=== PATIENT | female | born 1970 | race African-American/Black ===

== ENCOUNTER 2017-10-20 11:57 | Inpatient (IN) | payer OTHER ==
[~2017-10-20] VITALS: Ht 157.5 cm; Wt 65.8 kg
[~2017-10-20 11:57] MED LIST: IBUP400T20 PO; PROM25SU8 PO; ULTR50TA PO; ZITH250T PO; [UNRECOGNIZED DRUG - OTHER] PO
--- NOTE | 2017-10-20 12:19 | PD ---
HPI Chief Complaint: Psychiatric Symptoms Time Seen by Provider: 12:13 Travel History International Travel<30 days: No Contact w/Intl Traveler<30days: No Traveled to known affect area: No History of Present Illness HPI 47-year-old female patient previously seen at [facility] (Former[facility]), was Carvajal acted by their nurse practitioner and sent here for further evaluation and treatment. Patient is actively suicidal and questionably psychotic. Patient is currently living in a snf with her daughter and daughter's children. She reports having vivid dreams and is unsure what is real and what is not real at this time. Patient reports that she has had a left-sided headache for approximately 3 weeks, which she describes as her "brain sliding into my left ear". Patient states she had similar symptoms last time she was Carvajal acted 20 years ago. She denies any specific neurological deficits. She states her headache is about a 7 out of 10. Patient has allergies to sulfa, codeine, and penicillin. PFSH Past Medical History Anxiety: Yes Depression: Yes Past Surgical History Section: Yes Tonsillectomy: Yes Social History Alcohol Use: Yes (SOCIAL) Tobacco Use: Yes (2PPD) Substance Use: No Allergies-Medications (Allergen,Severity, Reaction): Coded Allergies: Sulfa (Sulfonamide Antibiotics) (Unverified Allergy, Mild, 10/20/17) penicillin G (Unverified Allergy, Mild, 10/20/17) codeine (Unverified Adverse Reaction, Severe, UPSETS STOMACH, 10/20/17) Reported Meds & Prescriptions Reported Meds & Active Scripts Active No Active Prescriptions or Reported Medications Review of Systems Except as stated in HPI: all other systems reviewed are Neg General / Constitutional: No: Fever Eyes: No: Visual changes HENT: Positive: Headaches, No: Vertigo, Lightheadedness, Sore Throat, Rhinitis , Congestion, Nosebleed, Neck Pain, Dental Difficulties, Ear Discharge, Earache Cardiovascular: No: Chest Pain or Discomfort Respiratory: No: Shortness of Breath Gastrointestinal: No: Abdominal Pain Genitourinary: No: Dysuria Musculoskeletal: No: Pain Skin: No Rash Neurologic: No: Weakness Psychiatric: Positive: Depression, Suicidal Ideations, No: Homicidal Ideation Endocrine: No: Polydipsia Hematologic/Lymphatic: No: Easy Bruising Physical Exam Narrative GENERAL: Patient appears cooperative but frustrated. She is in no acute medical distress SKIN: Warm and dry. Normal color. Normal turgor. HEAD: Atraumatic. Normocephalic. Headache not reproducible with palpation EYES: Pupils equal and round. No scleral icterus. No injection or drainage. No nystagmus. ENT: No nasal bleeding or discharge. Mucous membranes pink and moist. TMs are clear bilaterally. Pharynx is clear. Airway is patent. NECK: Trachea midline. Nontender and supple. CARDIOVASCULAR: Regular rate and rhythm. RESPIRATORY: No accessory muscle use. Clear to auscultation. Breath sounds equal bilaterally. GASTROINTESTINAL: Abdomen soft, non-tender, nondistended. Hepatic and splenic margins not palpable. MUSCULOSKELETAL: Extremities without clubbing, cyanosis, or edema. No obvious deformities. NEUROLOGICAL: Awake and alert. No obvious cranial nerve deficits. Motor grossly within normal limits. Five out of 5 muscle strength in the arms and legs. Normal speech. PSYCHIATRIC: Appropriate mood and affect; insight and judgment normal. Data Data Last Documented VS Vital Signs Date Time Temp Pulse Resp B/P (MAP) Pulse Ox O2 Delivery O2 Flow Rate FiO2 10/20/17 12:25 72 18 10/20/17 12:25 97.8 128/73 (91) 100 Room Air Orders Orders Complete Blood Count With Diff (10/20/17 12:16) Comprehensive Metabolic Panel (10/20/17 12:16) Thyroid Stimulating Hormone (10/20/17 12:16) Urinalysis - C+S If Indicated (10/20/17 12:16) Ed Urine Pregnancytest Poc (10/20/17 12:16) Psych Screen (10/20/17 12:16) Drug Screen, Random Urine (10/20/17 12:16) Alcohol (Ethanol) (10/20/17 12:16) Ct Brain W/O Iv Contrast(Rout) (10/20/17 12:29) Labs Laboratory Tests Test 10/20/17 12:30 White Blood Count 11.1 TH/MM3 Red Blood Count 4.48 MIL/MM3 Hemoglobin 14.8 GM/DL Hematocrit 43.2 % Mean Corpuscular Volume 96.3 FL Mean Corpuscular Hemoglobin 33.0 PG Mean Corpuscular Hemoglobin Concent 34.3 % Red Cell Distribution Width 13.5 % Platelet Count 238 TH/MM3 Mean Platelet Volume 7.1 FL Neutrophils (%) (Auto) 65.6 % Lymphocytes (%) (Auto) 26.7 % Monocytes (%) (Auto) 5.9 % Eosinophils (%) (Auto) 1.3 % Basophils (%) (Auto) 0.5 % Neutrophils # (Auto) 7.3 TH/MM3 Lymphocytes # (Auto) 3.0 TH/MM3 Monocytes # (Auto) 0.7 TH/MM3 Eosinophils # (Auto) 0.1 TH/MM3 Basophils # (Auto) 0.1 TH/MM3 CBC Comment DIFF FINAL Differential Comment Urine Color YELLOW Urine Turbidity HAZY Urine pH 5.5 Urine Specific [place] 1.012 Urine Protein NEG mg/dL Urine Glucose (UA) NEG mg/dL Urine Ketones NEG mg/dL Urine Occult Blood NEG Urine Nitrite NEG Urine Bilirubin NEG Urine Urobilinogen LESS THAN 2.0 MG/DL Urine Leukocyte Esterase NEG Urine RBC LESS THAN 1 /hpf Urine WBC 1 /hpf Urine Squamous Epithelial Cells 14 /hpf Urine Bacteria OCC /hpf Urine Mucus FEW /lpf Microscopic Urinalysis Comment CULT NOT INDICATED Blood Urea Nitrogen 12 MG/DL Creatinine 0.72 MG/DL Random Glucose 89 MG/DL Total Protein 7.9 GM/DL Albumin 3.9 GM/DL Calcium Level 8.8 MG/DL Alkaline Phosphatase 54 U/L Aspartate Amino Transf (AST/SGOT) 18 U/L Alanine Aminotransferase (ALT/SGPT) 24 U/L Total Bilirubin 0.4 MG/DL Sodium Level 139 MEQ/L Potassium Level 4.2 MEQ/L Chloride Level 105 MEQ/L Carbon Dioxide Level 27.2 MEQ/L Anion Gap 7 MEQ/L Estimat Glomerular Filtration Rate 105 ML/MIN Thyroid Stimulating Hormone 3rd Gen 1.510 uIU/ML Urine Opiates Screen NEG Urine Barbiturates Screen NEG Urine Amphetamines Screen NEG Urine Benzodiazepines Screen NEG Urine Cocaine Screen NEG Urine Cannabinoids Screen POS Ethyl Alcohol Level LESS THAN 3 MG/DL MDM Medical Decision Making Medical Screen Exam Complete: Yes Emergency Medical Condition: Yes Medical Record Reviewed: Yes Differential Diagnosis Carvajal act. Suicidal ideation. Headache. Tension versus intracranial process. Narrative Course Patient appears medically stable at time of exam. Labs ordered as per psychiatric protocol. CT of the head is ordered. Labs are essentially unremarkable except for positive cannabis in the urine. CT scan shows possible enlarged pineal gland with recommended MRI follow-up on an outpatient basis. Patient is medically clear for psychiatric evaluation. Psych screen is ordered. Scripts No Active Prescriptions or Reported Meds Condition: Stable Amanda,Jeremias F. PA Oct 20, 2017 12:19
[2017-10-20 12:25] VITALS: BP 128/73; PULSE 72; RESP 18; TEMP 97.8; O2SAT 100
[2017-10-20 12:47] LABS: AUTOMATED NEUTROPHIL # 7.3 TH/MM3 (1.8-7.7); BASOPHIL # 0.1 TH/MM3 (0-0.2); BASOPHIL % 0.5 % (0.0-2.0); EOSINOPHIL # 0.1 TH/MM3 (0-0.4); EOSINOPHIL % 1.3 % (0.0-4.0); HEMATOCRIT 43.2 % (35.0-46.0); HEMOGLOBIN 14.8 GM/DL (11.6-15.3); LYMPH % 26.7 % (9.0-44.0); MEAN CELL VOLUME 96.3 FL (80.0-100.0); MEAN CORPUSCULAR HGB CONC 34.3 % (32.0-36.0); MEAN PLATELET VOLUME 7.1 FL (7.0-11.0); MONO % 5.9 % (0.0-8.0); MONOCYTE # 0.7 TH/MM3 (0-0.9); NEUT % 65.6 % (16.0-70.0); PLATELET COUNT 238 TH/MM3 (150-450); RED BLOOD COUNT 4.48 MIL/MM3 (4.00-5.30); RED CELL DISTRIBUTION WIDTH 13.5 % (11.6-17.2); WHITE BLOOD COUNT 11.1 TH/MM3 (4.0-11.0)
[2017-10-20 12:55] LABS: BACTERIA, URINE OCC /hpf; BILIRUBIN, URINE NEG (NEG); BLOOD, URINE NEG (NEG); GLUCOSE,URINE NEG (NEG); KETONE, URINE NEG (NEG); MUCUS URINE FEW /lpf (OCC); NITRITE,URINE NEG (NEG); PH, URINE 5.5 (5.0-8.5); SQUAMOUS EPITHELIAL CELL URINE 14 /hpf (0-5); URINE COLOR YELLOW (YELLW/STRAW); URINE LEUKOCYTE ESTERASE NEG (NEG)
[2017-10-20 13:09] LABS: ALBUMIN 3.9 GM/DL (3.4-5.0); AST (GOT) 18 U/L (15-37); BICARBONATE 27.2 MEQ/L (21.0-32.0); BLOOD UREA NITROGEN 12 MG/DL (7-18); CALCIUM 8.8 MG/DL (8.5-10.1); CHLORIDE 105 MEQ/L (98-107); CREATININE 0.72 MG/DL (0.50-1.00); GLOMERULAR FILTRATION RATE 105 ML/MIN (>89); GLUCOSE,RANDOM 89 MG/DL (74-106); SODIUM (NA) 139 MEQ/L (136-145)
[2017-10-20 13:19] LABS: ALKALINE PHOSPHATASE 54 U/L (45-117); ALT (GPT) 24 U/L (10-53); TOTAL BILIRUBIN ADULT 0.4 MG/DL (0.2-1.0); TOTAL PROTEIN 7.9 GM/DL (6.4-8.2)
--- NOTE | 2017-10-20 13:28 | RADRPT ---
EXAM DATE/TIME: 10/20/2017 13:09 [place] COMPARISON: No previous studies available for comparison. INDICATIONS : Altered mental status. RADIATION DOSE: 34.80 CTDIvol (mGy) MEDICAL HISTORY : None SURGICAL HISTORY : None. ENCOUNTER: Initial ACUITY: 1 day PAIN SCALE: 0/10 LOCATION: cranial TECHNIQUE: Multiple contiguous axial images were obtained of the head. Using automated exposure control and adj ustment of the mA and/or kV according to patient size, radiation dose was kept as low as reasonably a chievable to obtain optimal diagnostic quality images. DICOM format image data is available electro nically for review and comparison. FINDINGS: CEREBRUM: The ventricles are normal for age. No evidence of midline shift, mass lesion, hemorrhage or acute in farction. No extra-axial fluid collections are seen. POSTERIOR FOSSA: The cerebellum and brainstem are intact. The 4th ventricle is midline. The cerebellopontine angle i s unremarkable. Pineal gland appears prominent. EXTRACRANIAL: The visualized portion of the orbits is intact. SKULL: The calvaria is intact. No evidence of skull fracture. CONCLUSION: 1. No acute intracranial abnormality. 2. Questionable prominence of the pineal gland. Outpatient MRI recommended. Cosmo Hamilton MD on October 20, 2017 at 13:22 Board Certified Radiologist. This report was verified electronically.
[2017-10-20 18:25] VITALS: BP 123/74; PULSE 84; RESP 16; O2SAT 100
[2017-10-20 22:18] VITALS: BP 110/55; PULSE 60; RESP 17; O2SAT 98
[2017-10-21 06:18] VITALS: BP 98/64; PULSE 69; RESP 17; O2SAT 97
[2017-10-21] MEDS ORDERED: ACETAMINOPHEN 325 MG TAB PO PRN (08:00)
[2017-10-21] MEDS ORDERED: MAGNESIUM HYDROXIDE SUSP 30 ML CUP PO PRN (08:00)
[2017-10-21] MEDS ORDERED: LORazepam 2 MG/ML VIAL IM PRN ×2 (08:00)
[2017-10-21] MEDS ORDERED: LORazepam 0.5 MG TAB PO PRN (08:00)
[2017-10-21] MEDS ORDERED: ALUMINUM/MAGNESIUM/SIMETH 30 ML CUP PO PRN (08:00)
[2017-10-21] MEDS: REMOVE OLD PATCH T-DERMAL SCH (09:00)
[2017-10-21 10:20] VITALS: BP 122/72; PULSE 95; RESP 20; TEMP 98.2
--- NOTE | 2017-10-21 13:03 | HHI.HP ---
Provisional Diagnosis Admission Date Oct 21, 2017 at 08:02 [place] I. Bipolar disorder, with mixed earl and depression, cannabis use disorder [place] II. Unspecified personality disorder [place] III. No significant medical history Certification of Person's Competence To Provide Express and Informed Consent I have personally examined Charbel Vyas , a person being served at [facility] on, Oct 21, 2017 12:53. Express and informed consent means consent voluntarily given in writing, by a competent person, after sufficient explanation and disclosure of the subject matter involved to enable the person to make a knowing and willful decision without any element of force, fraud, deceit, duress, or other form of constraint or coercion. This person is 18 years of age or older, is not now known to be incompetent to consent to treatment with a guardian advocate, and does not have a health care surrogate or proxy currently making medical treatment decisions. I have found this person to be one of the following: [x] Competent to provide express and informed consent, as defined above, for voluntary admission to this facility and is competent to provide express and informed consent for treatment. He/she has the consistent capacity to make well reasoned, willful, and knowing decisions concerning his or her medical or mental health treatment. The person fully and consistently understands the purpose of the admission for examination/placement and is fully capable of personally exercising all rights assured [place] Incompetent to provide express and informed consent to voluntary admission, and this is incompetent to provide express and informed consent to treatment. The person must be transferred to involuntary status and a petition for a guardian advocate filed with the Circuit Court. [] Refusing to provide express and informed consent to voluntary admission but is competent to provide express and informed consent for treatment. The person must be discharged or transferred to involuntary status. Form shall be completed within 24 hours of a person's arrival at the receiving facility and filed in the clinical record of each person: 1. Admitted on a voluntary basis 2. Permitted to provide express and informed consent to his/her own treatment 3. Allowed to transfer from involuntary to voluntary status 4. Prior to permitting a person to consent to his or her own treatment after having been previously found incompetent to consent to treatment. History of Present Illness Capacity: Has Capacity HPI The patient is a 47-year-old woman, domiciled with her sister in [facility], , employed, with psychiatric history of OCD, bipolar disorder, 2 previous psychiatric hospitalizations, her last hospitalization was in 1999, she has not previous suicidal attempts, she is not in psychotropics at the moment, she has no significant medical history, the patient previously seen at [facility], was Carvajal acted by their nurse practitioner and sent here for further evaluation and treatment. Patient is actively suicidal and questionably psychotic. Patient is currently living in a long term with her daughter and daughter's children. She reports having vivid dreams and is unsure what is real and what is not real at this time. Patient reports that she has had a left-sided headache for approximately 3 weeks, which she describes as her "brain sliding into my left ear". Patient states she had similar symptoms last time she was Carvajal acted 20 years ago. She denies any specific neurological deficits. She states her headache is about a 7 out of 10. Patient has allergies to sulfa, codeine, and penicillin. On psychiatric evaluation today the patient is irritable, stating that she has been very upset for the last 2 weeks. She says that she doesn't even have a good reason to be so upset, but she has been having frequent mood swings, episodes of verbal hostility, short temper and explosive behavior. The patient also reports that she has been sleeping poorly, no more than 2 hours per day," I feel I am losing control of myself, and I have been having suicidal thoughts". The patient says that her family has been telling her calm and look for help and restart her psychotropics, at the beginning she was reluctant, but she finally accepted "because everybody is telling me that something is really wrong with me". At this moment the patient reports suicidal thoughts, but she denies suicidal ideation, she denies homicidal ideation, she denies visual and auditory hallucinations. The patient is oriented 3. As the use of marijuana occasionally, alcohol rarely. Patient says that she would sign a voluntary admission. Review of Systems Constitutional: DENIES: Diaphoretic episodes, Fatigue, Fever, Weight gain, Weight loss, Chills, Dizziness, Change in appetite, Night Sweats Endocrine: DENIES: Abnorml menstrual pattern, Heat/cold intolerance, Polydipsia , Polyuria, Polyphagia Eyes: DENIES: Blurred vision, Diplopia, Eye inflammation, Eye pain, Vision loss , Photosensitivity, Double Vision Ears, nose, mouth, throat: DENIES: Tinnitus, Hearing loss, Vertigo, Nasal discharge, Oral lesions, Throat pain, Hoarseness, Ear Pain, Running Nose, Epistaxis, Sinus Pain, Toothache, Odynophagia Respiratory: DENIES: Apneas, Cough, Snoring, Wheezing, Hemoptysis, Sputum production, Shortness of breath Cardiovascular: DENIES: Chest pain, Palpitations, Syncope, Dyspnea on Exertion , PND, Lower Extremity Edema, Orthopnea, Claudication Gastrointestinal: DENIES: Abdominal pain, Black stools, Bloody stools, Constipation, Diarrhea, Nausea, Vomiting, Difficulty Swallowing, Anorexia Genitourinary: DENIES: Abnormal vaginal bleeding, Dysmenorrhea, Dyspareunia, Sexual dysfunction, Urinary frequency, Urinary incontinence, Urgency, Hematuria , Dysuria, Nocturia, Vaginal discharge Musculoskeletal: DENIES: Joint pain, Muscle aches, Stiffness, Joint Swelling, Back pain, Neck pain Integumentary: DENIES: Abnormal pigmentation, Pruritus, Rash, Nail changes, Breast masses, Breast skin changes, Nipple discharge Hematologic/lymphatic: DENIES: Bruising, Lymphadenopathy Immunologic/allergic: DENIES: Eczema, Urticaria Neurologic: DENIES: Abnormal gait, Headache, Localized weakness, Paresthesias, Seizures, Speech Problems, Tremor, Poor Balance Psychiatric: DENIES: Anxiety, Confusion, Mood changes, Depression, Hallucinations, Agitation, Suicidal Ideation, Homicidal Ideation, Delusions Substance Abuse History Drugs/Alcohol past 12 months Cannabis occasionally Past Family Social History Coded Allergies: Sulfa (Sulfonamide Antibiotics) (Unverified Allergy, Mild, 10/20/17) penicillin G (Unverified Allergy, Mild, 10/20/17) codeine (Unverified Adverse Reaction, Severe, UPSETS STOMACH, 10/20/17) Discontinued Reported Medications [Metalaxin] No Conflict Check, 1 TAB PO DAILY 01/14/13 Current Medications Medications (Trade) Dose Ordered Sig/Roberto Route Start Time Stop Time Status Last Admin (Ativan) 1 mg Q6H PRN PO 10/21/17 08:00 (Ativan Inj) 1 mg Q6H PRN IM 10/21/17 08:00 (Tylenol) 650 mg Q4H PRN PO 10/21/17 08:00 (Milk Of Magnesia Liq) 30 ml DAILY PRN PO 10/21/17 08:00 (Mag-Al Plus Susp Liq) 30 ml Q6H PRN PO 10/21/17 08:00 (Habitrol 21 Mg Patch.24 Hr) 1 patch DAILY T-DERMAL 10/21/17 09:00 (SEROquel) 25 mg BID PO 10/21/17 09:00 (Desyrel) 100 mg HS PO 10/21/17 21:00 Miscellaneous Information 1 DAILY T-DERMAL 10/21/17 09:00 Family Psych History No family history Social History Patient was born and raised in [place], she lives in [place] with her sister, she is , employed as an implementation coordinator, she has to use a [employer] Patient's Strengths (min. 2) Good insight, family support Physical Exam No tremors, no EPS, no psychomotor retardation or agitation, no gait disturbance Vital Signs Vital Signs Date Time Temp Pulse Resp B/P (MAP) Pulse Ox O2 Delivery O2 Flow Rate FiO2 10/21/17 10:22 10/21/17 06:18 69 17 97 Room Air 10/20/17 12:25 97.8 Mental Status Examination Appearance: Appropriate Consciousness: Alert Orientation: x4 Motor Activity: Normal gait Speech: Unremarkable Language: Adequate Fund of Knowledge: Adequate Attention and Concentration: Adequate Memory: Unremarkable Mood: Angry, Irritable Affect: Irritable Thought Process & Associations: Intact Thought Content: Appropriate Hallucination Type: None Delusion Type: None Suicidal Ideation: Yes Suicidal Plan: No Suicidal Intention: No Homicidal Ideation: No Homicidal Plan: No Homicidal Intention: No Insight: Fair Judgment: Impulsive Assessment & Plan Problem List: (1) Bipolar affective, mixed ICD Codes: F31.60 - Bipolar disorder, current episode mixed, unspecified Assessment & Plan: On psychiatric evaluation the patient is very irritable, upset, verbally hostile, but redirectable. She reports that in the last weeks she has been experiencing frequent mood swings, irritability, is sleeping very poorly, with frequent outbursts of anger with no reasons, and she also has been having suicidal thoughts. The patient has history of bipolar disorder and OCD, she has 2 previous psychiatric hospitalizations in the past, she has not been taking medications for over 10 years. She needs psychiatric hospitalization for stabilization. She accepts a voluntary psychiatric admission. Will be started in Seroquel 25 mg twice a day for mood stabilization, trazodone 100 mg at bedtime to help with the sleep and mood. Patient agreed and signed the psychotropic form. Brief supportive psychotherapy and psychoeducation provided. Assessment & Plan Estimated LOS: Edd Gaffney MD Oct 21, 2017 13:03
[2017-10-21] MEDS: NICOTINE 21 MG/24 HR PATCH T-DERMAL SCH (13:10)
[2017-10-21] MEDS: QUEtiapine FUMARATE 25 MG TAB PO SCH ×2 (13:10→21:11)
[2017-10-21 18:00] VITALS: BP 93/50; PULSE 68; RESP 20; TEMP 98; O2SAT 98
[2017-10-21] MEDS: traZODone HCL 100 MG TAB PO SCH (21:11)
[2017-10-22 06:00] VITALS: BP 90/54; PULSE 53; RESP 16; TEMP 97.3; O2SAT 95
[2017-10-22] MEDS: REMOVE OLD PATCH T-DERMAL SCH (09:00)
[2017-10-22] MEDS: QUEtiapine FUMARATE 25 MG TAB PO SCH ×2 (09:06→20:32)
[2017-10-22] MEDS: NICOTINE 21 MG/24 HR PATCH T-DERMAL SCH (09:06)
[2017-10-22 12:33] LABS: BLOOD UREA NITROGEN 14 MG/DL (7-18); CHLORIDE 105 MEQ/L (98-107); CREATININE 0.78 MG/DL (0.50-1.00); GLOMERULAR FILTRATION RATE 96 ML/MIN (>89); GLUCOSE,RANDOM 77 MG/DL (74-106); SODIUM (NA) 138 MEQ/L (136-145)
[2017-10-22 12:34] LABS: CHOLESTEROL 210 MG/DL (120-200)
[2017-10-22 12:37] LABS: CHOLESTEROL/ HDL RATIO 2.94 RATIO; HDL CHOLESTEROL 71.2 MG/DL (40.0-60.0); LDL CHOLESTEROL 118 MG/DL (0-99); TRIGLYCERIDES 103 MG/DL (42-150)
[2017-10-22 15:47] LABS: HEMOGLOBIN A1C 5.6 % (4.3-6.0)
--- NOTE | 2017-10-22 16:09 | HHI.PYPN ---
Subjective Remarks Patient initially admitted by Dr. Koch his initial psych eval reviewed and agreed with. I have finished the initial psychiatric template orders in did review medication reconciliation Patient seen in [place] with nurse Finesse, chart review, patient compliant medication. Patient continues somewhat depressed irritable vigilance. Though today she denies suicidality said she slept somewhat better last night. She denies voices today also. For now continue treatment. Review of Systems Except as stated in HPI: all other systems reviewed are Neg Mental Status Examination Appearance: Appropriate Consciousness: Alert Orientation: x4 Motor Activity: Normal gait Speech: Unremarkable Language: Adequate Fund of Knowledge: Adequate Attention and Concentration: Adequate Memory: Unremarkable Mood: Angry, Irritable Affect: Irritable Thought Process & Associations: Intact Thought Content: Appropriate Hallucination Type: None Delusion Type: None Suicidal Ideation: Yes Suicidal Plan: No Suicidal Intention: No Homicidal Ideation: No Homicidal Plan: No Homicidal Intention: No Insight: Fair Judgment: Impulsive Results Labs Test 10/22/17 10:48 Blood Urea Nitrogen 14 MG/DL Creatinine 0.78 MG/DL Random Glucose 77 MG/DL Calcium Level 9.0 MG/DL Sodium Level 138 MEQ/L Potassium Level 3.9 MEQ/L Chloride Level 105 MEQ/L Carbon Dioxide Level 29.0 MEQ/L Anion Gap 4 MEQ/L Estimat Glomerular Filtration Rate 96 ML/MIN Triglycerides Level 103 MG/DL Cholesterol Level 210 MG/DL LDL Cholesterol 118 MG/DL HDL Cholesterol 71.2 MG/DL Cholesterol/HDL Ratio 2.94 RATIO Vitals/IOs Vital Signs Date Time Temp Pulse Resp B/P (MAP) Pulse Ox O2 Delivery O2 Flow Rate FiO2 10/22/17 06:00 97.3 53 16 90/54 (66) 95 10/21/17 06:18 Room Air Assessment & Plan Problem List: (1) Bipolar affective, mixed ICD Codes: F31.60 - Bipolar disorder, current episode mixed, unspecified Assessment & Plan Estimated LOS: days patient somewhat intense irritable the processing appropriately. Compliant medications. Does denies suicidality today denies voices today. Compliant medication Justification for Cont. Inpt. At this time patient will decompensate if placed in a lower level of care Discharge Planning Problem discharge back to start retirement with her family Mark Granger MD Oct 22, 2017 16:09
[2017-10-22 19:19] VITALS: BP 101/68; PULSE 58; RESP 18; TEMP 96.9; O2SAT 96
[2017-10-22] MEDS: traZODone HCL 100 MG TAB PO SCH (20:32)
[2017-10-23 06:04] VITALS: BP 99/60; PULSE 58; RESP 16; TEMP 97.9; O2SAT 100
[2017-10-23] MEDS: NICOTINE 21 MG/24 HR PATCH T-DERMAL SCH (09:21)
[2017-10-23] MEDS: QUEtiapine FUMARATE 25 MG TAB PO SCH ×2 (09:21→20:33)
[2017-10-23] MEDS: REMOVE OLD PATCH T-DERMAL SCH (09:22)
--- NOTE | 2017-10-23 15:11 | HHI.PYPN ---
Subjective Remarks Patient seen in [place] with nurse Marcial, patient mood seems somewhat improve is making better eye contact and more responsive. She still complains some chronic pain in her left hip with a left-sided mild headache. We'll discontinue Tylenol and offer Motrin 600 mg every 6 hours when necessary pain. Patient denies suicidality voices or visions at the present time. Review of Systems Except as stated in HPI: all other systems reviewed are Neg Mental Status Examination Appearance: Appropriate Consciousness: Alert Orientation: x4 Motor Activity: Normal gait Speech: Unremarkable Language: Adequate Fund of Knowledge: Adequate Attention and Concentration: Adequate Memory: Unremarkable Mood: Angry, Irritable Affect: Irritable Thought Process & Associations: Intact Thought Content: Appropriate Hallucination Type: None Delusion Type: None Suicidal Ideation: Yes Suicidal Plan: No Suicidal Intention: No Homicidal Ideation: No Homicidal Plan: No Homicidal Intention: No Insight: Fair Judgment: Impulsive Results Vitals/IOs Vital Signs Date Time Temp Pulse Resp B/P (MAP) Pulse Ox O2 Delivery O2 Flow Rate FiO2 10/23/17 06:04 97.9 58 16 99/60 (73) 100 10/21/17 06:18 Room Air Intake and Output 10/23/17 10/23/17 10/24/17 08:00 16:00 00:00 Intake Total 240 ml 120 ml Balance 240 ml 120 ml Assessment & Plan Problem List: (1) Bipolar affective, mixed ICD Codes: F31.60 - Bipolar disorder, current episode mixed, unspecified Assessment & Plan Estimated LOS: days patient remains depressed but slightly improved, continues complaining of of vague pain will discontinue Tylenol and add Motrin. Patient does deny suicidal at the present time Justification for Cont. Inpt. At this time patient will decompensate the placed in a lower level of care Discharge Planning Per return to the [facility] with her daughter and son-in-law and 4 grandchildren Mark Granger MD Oct 23, 2017 15:10
[2017-10-23 17:36] VITALS: BP 104/69; PULSE 77; RESP 16; TEMP 98.3; O2SAT 100
[2017-10-23] MEDS: LORazepam 1 MG TAB PO PRN (18:42)
[2017-10-23] MEDS: traZODone HCL 100 MG TAB PO SCH (20:33)
[2017-10-24 06:00] VITALS: BP 120/68; PULSE 70; RESP 16; TEMP 97.9; O2SAT 98
[2017-10-24] MEDS: QUEtiapine FUMARATE 25 MG TAB PO SCH ×2 (08:50→21:08)
[2017-10-24] MEDS: NICOTINE 21 MG/24 HR PATCH T-DERMAL SCH (08:51)
[2017-10-24] MEDS: REMOVE OLD PATCH T-DERMAL SCH (08:54)
[2017-10-24] MEDS: LORazepam 1 MG TAB PO PRN (12:01)
--- NOTE | 2017-10-24 13:56 | HHI.PYPN ---
Subjective Remarks Patient seen in [place] with nurse Janeth, chart review, patient compliant medications. Patient to somewhat depressed though better eye contact has improved she now denies suicidality. Still remains stress over her living situation with her daughter son-in-law and 4 grandchildren in the [facility]. For now continue treatment Review of Systems Except as stated in HPI: all other systems reviewed are Neg Mental Status Examination Appearance: Appropriate Consciousness: Alert Orientation: x4 Motor Activity: Normal gait Speech: Unremarkable Language: Adequate Fund of Knowledge: Adequate Attention and Concentration: Adequate Memory: Unremarkable Mood: Angry, Irritable Affect: Irritable Thought Process & Associations: Intact Thought Content: Appropriate Hallucination Type: None Delusion Type: None Suicidal Ideation: Yes Suicidal Plan: No Suicidal Intention: No Homicidal Ideation: No Homicidal Plan: No Homicidal Intention: No Insight: Fair Judgment: Impulsive Results Vitals/IOs Vital Signs Date Time Temp Pulse Resp B/P (MAP) Pulse Ox O2 Delivery O2 Flow Rate FiO2 10/24/17 06:00 97.9 70 16 120/68 (85) 98 10/21/17 06:18 Room Air Intake and Output 10/24/17 10/24/17 10/25/17 08:00 16:00 00:00 Intake Total 480 ml Balance 480 ml Assessment & Plan Problem List: (1) Bipolar affective, mixed ICD Codes: F31.60 - Bipolar disorder, current episode mixed, unspecified Assessment & Plan Estimated LOS: days patient continues depressed, though it is lifting somewhat. She denies suicidality at this time. Compliant medication for now continue treatment Justification for Cont. Inpt. This time patient decompensate if placed in a lower level of care Discharge Planning Patient probably to return to her family and [facility] Mark Granger MD Oct 24, 2017 13:56
[2017-10-24 18:00] VITALS: BP 112/68; PULSE 78; RESP 17; TEMP 98.8; O2SAT 98
[2017-10-24] MEDS: traZODone HCL 100 MG TAB PO SCH (21:08)
[2017-10-25 06:17] VITALS: BP 90/54; PULSE 70; RESP 16; TEMP 98.1; O2SAT 96
[2017-10-25] MEDS: REMOVE OLD PATCH T-DERMAL SCH (09:00)
[2017-10-25] MEDS: NICOTINE 21 MG/24 HR PATCH T-DERMAL SCH (09:02)
[2017-10-25] MEDS: QUEtiapine FUMARATE 25 MG TAB PO SCH ×2 (09:02→21:11)
[2017-10-25] MEDS: IBUPROFEN 600 MG TAB PO PRN ×2 (09:11→17:56)
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
--- NOTE | 2017-10-25 15:10 | PD.CONS ---
HPI Service [facility] Consult Requested By Reason for Consult headache Primary Care Physician Unknown Diagnoses: History of Present Illness patient is a 47 y/o female with history of bipolar disorder and migraine headache who's been admitted to the psych unit for further treatment of her bipolar disorder. she says that she's been having headache for the past three weeks. headache is non-throbbing, constant and localized to the left fronto- parietal.pain has no radiation and not associated with nausea,vomiting or vision changes. she says that she had some photophobia in the beginning but it seems that ' the light is not bothering her as much now'. Review of Systems Neurologic: COMPLAINS OF: Headache Past Family Social History Allergies: Coded Allergies: Sulfa (Sulfonamide Antibiotics) (Unverified Allergy, Mild, 10/20/17) penicillin G (Unverified Allergy, Mild, 10/20/17) codeine (Unverified Adverse Reaction, Severe, UPSETS STOMACH, 10/20/17) Past Medical History bipolar disorder/ migraine. Past Surgical History . Reported Medications none Active Ordered Medications Inpatient Medications Acetaminophen (Tylenol) 650 mg Q4H PRN PO Pain 1-5 or Temp >101F; Start at 08:00; Stop 10/23/17 at 15:09; Status DC Al Hydrox/Mg Hydrox/Simethicone (Mag-Al Plus Susp Liq) 30 ml Q6H PRN PO DYSPEPSIA; Start 10/21/17 at 08:00 Ibuprofen (Motrin) 600 mg Q6H PRN PO PAIN 1-10 Last administered on 10/25/17at 09 :11; Start 10/23/17 at 15:15 Lorazepam (Ativan Inj) 0.5 mg Q12H PRN IM MODERATE TO SEVERE ANXIETY; Start at 08:00; Stop 10/21/17 at 08:19; Status DC Lorazepam (Ativan) 0.5 mg Q12H PRN PO MODERATE TO SEVERE ANXIETY; Start at 08:00; Stop 10/21/17 at 08:19; Status DC Magnesium Hydroxide (Milk Of Magnesia Liq) 30 ml DAILY PRN PO CONSTIPATION; Start 10/21/17 at 08:00 Miscellaneous Information 1 DAILY T-DERMAL Last administered on 10/25/17at 09:00 ; Start 10/21/17 at 09:00 Nicotine (Habitrol 21 Mg Patch.24 Hr) 1 patch DAILY T-DERMAL Last administered on 10/25/17 09:02; Start 10/21/17 at 09:00 Quetiapine Fumarate (SEROquel) 25 mg BID PO Last administered on 10/25/17 09:02 ; Start 10/21/17 at 09:00 Trazodone HCl (Desyrel) 100 mg HS PO Last administered on 10/24/17at 21:08; Start 10/21/17 at 21:00 Family History schizophrenia in father/ depression in brother. Social History smokes a few cigarettes a day- drinks occasionally. Physical Exam Vital Signs Vital Signs Date Time Temp Pulse Resp B/P (MAP) Pulse Ox O2 Delivery O2 Flow Rate FiO2 10/25/17 06:17 98.1 70 16 90/54 (66) 96 10/24/17 18:00 98.8 78 17 112/68 (83) 98 Physical Exam GENERAL: This is a well-nourished, well-developed patient, in no apparent distress. SKIN: No rashes, ecchymoses or lesions. Cool and dry. HEAD: Atraumatic. Normocephalic. No temporal or scalp tenderness. EYES: Pupils equal round and reactive. Extraocular motions intact. No scleral icterus. No injection or drainage. ENT: Nose without bleeding, purulent drainage or septal hematoma. Throat without erythema, tonsillar hypertrophy or exudate. Uvula midline. Airway patent. NECK: Trachea midline. No JVD or lymphadenopathy. Supple, nontender, no meningeal signs. CARDIOVASCULAR: Regular rate and rhythm without murmurs, gallops, or rubs. RESPIRATORY: Clear to auscultation. Breath sounds equal bilaterally. No wheezes , rales, or rhonchi. GASTROINTESTINAL: Abdomen soft, non-tender, nondistended. No hepato-splenomegaly , or palpable masses. No guarding. MUSCULOSKELETAL: Extremities without clubbing, cyanosis, or edema. No joint tenderness, effusion, or edema noted. No calf tenderness. Negative Homans sign bilaterally. NEUROLOGICAL: Awake and alert. Cranial nerves II through XII intact. Motor and sensory grossly within normal limits. Five out of 5 muscle strength in all muscle groups. Normal speech. Result Diagram: 10/22/17 1048 Imaging Last Impressions Head CT 10/20/17 1229 Signed Impressions: Service Date/Time: Friday, October 20, 2017 13:09 - CONCLUSION: 1. No acute intracranial abnormality. 2. Questionable prominence of the pineal gland. Outpatient MRI recommended. Cosmo Hamilton MD Assessment and Plan Assessment and Plan A/P - possible migraine headache had a recent CT head with no acute abnormality. one dose of Toradol today- continue with ibuprofen as needed. will monitor the response. -bipolar disorder- management per psych. thank you for the consult. Discussed Condition With the patient and RN. Jairo Arevalo MD Oct 25, 2017 15:09
[2017-10-25] MEDS: KETOROLAC TROMETHAMINE 60 MG/2 ML (IM) VIAL IM ONE ×2 (15:15→16:16)
[2017-10-25 18:15] VITALS: BP 111/70; PULSE 75; RESP 18; TEMP 97.8; O2SAT 100
[2017-10-25] MEDS: traZODone HCL 100 MG TAB PO SCH (21:11)
[2017-10-26 05:58] VITALS: BP 100/64; PULSE 88; RESP 16; TEMP 97.8; O2SAT 98
[2017-10-26] MEDS: NICOTINE 21 MG/24 HR PATCH T-DERMAL SCH (09:00)
[2017-10-26] MEDS: REMOVE OLD PATCH T-DERMAL SCH (09:00)
[2017-10-26] MEDS: QUEtiapine FUMARATE 25 MG TAB PO SCH ×2 (09:01→20:30)
--- NOTE | 2017-10-26 10:29 | HHI.PR ---
Subjective Remarks in no acute distress. headache is slightly better. d/w the RN and no acute issues over night. Objective Vitals Vital Signs Date Time Temp Pulse Resp B/P (MAP) Pulse Ox O2 Delivery O2 Flow Rate FiO2 10/26/17 05:58 97.8 88 16 100/64 (76) 98 10/25/17 18:15 97.8 75 18 111/70 (84) 100 I/O 10/25/17 10/25/17 10/25/17 10/26/17 10/26/17 10/26/17 07:00 15:00 23:00 07:00 15:00 23:00 Intake Total 240 ml Balance 240 ml Intake Oral 240 ml Result Diagram: 10/22/17 1048 Imaging Last Impressions Head CT 10/20/17 1229 Signed Impressions: Service Date/Time: Friday, October 20, 2017 13:09 - CONCLUSION: 1. No acute intracranial abnormality. 2. Questionable prominence of the pineal gland. Outpatient MRI recommended. Cosmo Hamilton MD Objective Remarks GENERAL: This is a well-nourished, well-developed patient, in no apparent distress. CARDIOVASCULAR: Regular rate and regular rhythm without murmurs, gallops, or rubs. RESPIRATORY: Clear to auscultation. Breath sounds equal bilaterally. No wheezes , rales, or rhonchi. GASTROINTESTINAL: Abdomen soft, non-tender, nondistended. Normal, active bowel sounds MUSCULOSKELETAL: Extremities without clubbing, cyanosis, or edema. NEURO: Alert & Oriented x4 to person, place, time, situation. Moves all ext x4 Medications and IVs Inpatient Medications Acetaminophen (Tylenol) 650 mg Q4H PRN PO Pain 1-5 or Temp >101F; Start at 08:00; Stop 10/23/17 at 15:09; Status DC Al Hydrox/Mg Hydrox/Simethicone (Mag-Al Plus Susp Liq) 30 ml Q6H PRN PO DYSPEPSIA; Start 10/21/17 at 08:00 Ibuprofen (Motrin) 600 mg Q6H PRN PO PAIN 1-10 Last administered on 10/25/17at 17 :56; Start 10/23/17 at 15:15 Ketorolac Tromethamine (Toradol Inj) 30 mg ONCE ONCE IM ; Start 10/25/17 at 15: 15; Stop 10/25/17 at 15:16; Status DC Lorazepam (Ativan Inj) 0.5 mg Q12H PRN IM MODERATE TO SEVERE ANXIETY; Start at 08:00; Stop 10/21/17 at 08:19; Status DC Lorazepam (Ativan) 0.5 mg Q12H PRN PO MODERATE TO SEVERE ANXIETY; Start at 08:00; Stop 10/21/17 at 08:19; Status DC Magnesium Hydroxide (Milk Of Magnesia Liq) 30 ml DAILY PRN PO CONSTIPATION; Start 10/21/17 at 08:00 Miscellaneous Information 1 DAILY T-DERMAL Last administered on 10/26/17at 09:00 ; Start 10/21/17 at 09:00 Nicotine (Habitrol 21 Mg Patch.24 Hr) 1 patch DAILY T-DERMAL Last administered on 10/26/17at 09:00; Start 10/21/17 at 09:00 Quetiapine Fumarate (SEROquel) 25 mg BID PO Last administered on 10/26/17at 09:01 ; Start 10/21/17 at 09:00 Trazodone HCl (Desyrel) 100 mg HS PO Last administered on 10/25/17at 21:11; Start 10/21/17 at 21:00 A/P Assessment and Plan A/P - possible migraine headache- better today. had a recent CT head with no acute abnormality. will stop motrin since she doesn't want to take it; will start on Tylenol. -bipolar disorder- management per psych. Jairo Arevalo MD Oct 26, 2017 10:29
[2017-10-26] MEDS: ACETAMINOPHEN 325 MG TAB PO PRN (14:00)
--- NOTE | 2017-10-26 14:00 | HHI.PYPN ---
Subjective Remarks Patient was seen and case discussed with nursing. Patient has not had any incidents with any patients or staff today. There is been no agitation or irritability. She is tolerating her medications well. She attributes her mood and behavior to her headache and she is now followed by the medical doctor who recommended Tylenol. She is eating and sleeping well. Denies suicidal or homicidal ideation intent or plan. Mental Status Examination Appearance: Appropriate Consciousness: Alert Orientation: x4 Motor Activity: Normal gait Speech: Unremarkable Language: Adequate Fund of Knowledge: Adequate Attention and Concentration: Adequate Memory: Unremarkable Mood: Appropriate Affect: Appropriate Thought Process & Associations: Intact Thought Content: Appropriate Hallucination Type: None Delusion Type: None Suicidal Ideation: No Suicidal Plan: No Suicidal Intention: No Homicidal Ideation: No Homicidal Plan: No Homicidal Intention: No Insight: Fair Judgment: Impulsive Results Labs Test 10/25/17 16:11 Erythrocyte Sedimentation Rate 6 mm/hr Vitals/IOs Vital Signs Date Time Temp Pulse Resp B/P (MAP) Pulse Ox O2 Delivery O2 Flow Rate FiO2 10/26/17 05:58 97.8 88 16 100/64 (76) 98 Assessment & Plan Problem List: (1) Bipolar affective, mixed ICD Codes: F31.60 - Bipolar disorder, current episode mixed, unspecified Assessment & Plan Continue current treatment plan Justification for Cont. Inpt. Patient would decompensate in a less restrictive setting Asif Pozo DO Oct 26, 2017 14:00
[2017-10-26 18:55] VITALS: BP 100/69; PULSE 76; RESP 16; TEMP 98.2; O2SAT 100
[2017-10-26] MEDS: traZODone HCL 100 MG TAB PO SCH (20:30)
[2017-10-27 06:16] VITALS: BP 106/59; PULSE 64; RESP 18; TEMP 98.2; O2SAT 98
[2017-10-27] MEDS: QUEtiapine FUMARATE 25 MG TAB PO SCH (08:19)
[2017-10-27] MEDS: REMOVE OLD PATCH T-DERMAL SCH (08:20)
[2017-10-27] MEDS: NICOTINE 21 MG/24 HR PATCH T-DERMAL SCH (08:20)
[2017-10-27] MEDS: ACETAMINOPHEN 325 MG TAB PO PRN (09:38)
[2017-10-27] MEDS ORDERED: SERO25TA PO (13:36)
[2017-10-27] MEDS ORDERED: TRAZ100T10 PO (13:36)
--- NOTE | 2017-10-27 13:40 | HHI.DS ---
Psychiatry Discharge Summary Inpatient Psychiatric care?: Yes Advance Directive: No Reason Not Provided: does not have Mental Health AdvanceDirective: No Health Care Proxy: No Admission Admission Date Oct 21, 2017 at 08:02 Admission Diagnosis: (1) Bipolar affective, mixed ICD Code: F31.60 - Bipolar disorder, current episode mixed, unspecified Brief History The patient is a 47-year-old woman, domiciled with her sister in [facility], , employed, with psychiatric history of OCD, bipolar disorder, 2 previous psychiatric hospitalizations, her last hospitalization was in 1999, she has not previous suicidal attempts, she is not in psychotropics at the moment, she has no significant medical history, the patient previously seen at [facility], was [facility] by their nurse practitioner and sent here for further evaluation and treatment. Patient is actively suicidal and questionably psychotic. Patient is currently living in a long term with her daughter and daughter's children. She reports having vivid dreams and is unsure what is real and what is not real at this time. Patient reports that she has had a left-sided headache for approximately 3 weeks, which she describes as her "brain sliding into my left ear". Patient states she had similar symptoms last time she was [facility] acted 20 years ago. She denies any specific neurological deficits. She states her headache is about a 7 out of 10. Patient has allergies to sulfa, codeine, and penicillin. On psychiatric evaluation today the patient is irritable, stating that she has been very upset for the last 2 weeks. She says that she doesn't even have a good reason to be so upset, but she has been having frequent mood swings, episodes of verbal hostility, short temper and explosive behavior. The patient also reports that she has been sleeping poorly, no more than 2 hours per day," I feel I am losing control of myself, and I have been having suicidal thoughts". The patient says that her family has been telling her calm and look for help and restart her psychotropics, at the beginning she was reluctant, but she finally accepted "because everybody is telling me that something is really wrong with me". At this moment the patient reports suicidal thoughts, but she denies suicidal ideation, she denies homicidal ideation, she denies visual and auditory hallucinations. The patient is oriented 3. As the use of marijuana occasionally, alcohol rarely. Patient says that she would sign a voluntary admission. Tobacco Use In Past 30 Days: 5 or More Cigarettes/Day Alcohol Use: Monthly or Less Hospital Course Patient's hospital course was uneventful, she did adjust to the milieu without difficulty, was compliant with the medications. She did rest. Did feel that her depression is lifting, denies suicidality homicidality voices or visions. She significant medication with her daughter. She is now ready to be discharged return to the [place] long term with her family continue look for more permanent living arrangements. Thus patient was discharged today with Rx 1 month follow-up [facility] outpatient medication management Results Blood Pressure 106 / 59 Vital Signs Date Time Temp Pulse Resp B/P (MAP) Pulse Ox O2 Delivery O2 Flow Rate FiO2 10/27/17 06:16 98.2 64 18 106/59 (75) 98 Laboratory Tests Test 10/25/17 16:11 Laboratory Results Test 10/22/17 10:48 Cholesterol Level 210 MG/DL (120-200) HDL Cholesterol 71.2 MG/DL (40.0-60.0) Hemoglobin A1c 5.6 % (4.3-6.0) LDL Cholesterol 118 MG/DL (0-99) Triglycerides Level 103 MG/DL (42-150) Summary of Procedures None done Imaging Last Impressions Head CT 10/20/17 1229 Signed Impressions: Service Date/Time: Friday, October 20, 2017 13:09 - CONCLUSION: 1. No acute intracranial abnormality. 2. Questionable prominence of the pineal gland. Outpatient MRI recommended. Cosmo Hamilton MD Pending results at discharge: No Medications # of Antipsychotic meds at D/C: 1 Approp Antipsych med options 1 - Minimum of three failed multiple trials of monotherapy. 2 - Documented plan to taper to monotherapy due to previous use of multiple meds OR cross-taper in progress at D/C. 3 - Documentation of augmentation of Clozapine. 4 - Justification other than those listed in allowable values 1-3, document here : Discharge Discharge Date: Oct 27, 2017 Discharge Diagnosis: (1) Bipolar affective, mixed Diagnosis: Principal ICD Code: F31.60 - Bipolar disorder, current episode mixed, unspecified Pt Condition on Discharge: Stable Discharge Disposition: Discharge Home Discharge Instructions Diet Instructions: As Tolerated, No Restrictions Activities you can perform: Regular-No Restrictions Scheduled Appointment: Donovan Marchman Act Discharge Time > 30 minutes Mental Status Examination Appearance: Appropriate Consciousness: Alert Orientation: x4 Motor Activity: Normal gait Speech: Unremarkable Language: Adequate Fund of Knowledge: Adequate Attention and Concentration: Adequate Memory: Unremarkable Mood: Appropriate Affect: Appropriate Thought Process & Associations: Intact Thought Content: Appropriate Hallucination Type: None Delusion Type: None Suicidal Ideation: No Suicidal Plan: No Suicidal Intention: No Homicidal Ideation: No Homicidal Plan: No Homicidal Intention: No Insight: Fair Judgment: Impulsive Discharge/Advance Care Plan Health Problems: (1) Bipolar affective, mixed Goals to promote your health * To prevent worsening of your condition and complications * To maintain your health at the optimal level Directions to meet your goals Take your medications as prescribed Follow your dietary instruction Follow activity as directed Keep your appointments as scheduled Take your immunizations and boosters as scheduled If your symptoms worsen call your PCP, if no PCP go to Urgent Care Center or Emergency Room For 14/04 questions related to your inpatient stay or results of tests pending at discharge, please contact Dr. Mark Granger at Smoking is Dangerous to Your Health. Avoid second hand smoking Mark Granger MD Oct 27, 2017 13:40
--- NOTE | 2017-10-27 14:26 | PD.TTN ---
Patient Problems 1. Discharge planning 2. Medication compliance 3. Knowledge deficit 4. Lack of coping skills Progress Toward Goals Provider Present: Dr. Doris Granger Provider Input: Pt is scheduled to be discharged today. Nurse(s) Present: Andree Ha, RN Nurse(s) Input: Pt will be discharged home today and appears improved. Psychiatric Counselors Present: PRESTON Ivan Psych Therapist Input: Pt will be discharged home and will be linked to outpatient follow up services through [facility]. Group Spec/RT/OT/HUGO Present: KIMBERLEE Clark Group Spec/RT/OT/HUGO Input: Pt attends group activities with good participation. Pt is social with peers. Discharge Plan [facility] Pt will return to the [facility] where she lives with her family. She will follow up with [facility]. Documentation Scribe: PRESTON Ivan Jonathan LMHC Oct 27, 2017 14:26
== END 2017-10-27 15:05 | disposition home or self-care (01) | DRG 885 ==
LOC: NEPD 11:57 → NEDA 10-21 08:02 → H260 10-21 10:15
PROVIDERS: ADMIT Psychiatry & Neurology Psychiatry; ATTEND Psychiatry & Neurology Psychiatry
DX: F31.60 Bipolar disorder, current episode mixed, unspecified (principal); R45.851 Suicidal ideations; F17.210 Nicotine dependence, cigarettes, uncomplicated; F42.9 Obsessive-compulsive disorder, unspecified; G89.29 Other chronic pain; M25.552 Pain in left hip; F41.9 Anxiety disorder, unspecified; G43.909 Migraine, unspecified, not intractable, without status migrainosus; Z88.2 Allergy status to sulfonamides; Z81.8 Family history of other mental and behavioral disorders
CPT/HCPCS: 70450; 80048; 80053; 80061; 80307; 81001; 83036; 84443; 84703; 85025; 85652; 99285; J1885